=== PATIENT | female | born 1960 | race American Indian/Alaskan Native ===

== ENCOUNTER 2018-01-31 17:41 | Emergency (ER) | payer MEDICARE ==
[2018-01-31] MEDS ORDERED: SUBLIMAZE IV ONE (18:41)
[2018-01-31] MEDS ORDERED: ZOFRAN IV ONE (18:41)
[2018-01-31] MEDS ORDERED: BENADRYL IV ONE (18:41)
--- NOTE | 2018-01-31 18:49 | Emergency Department Report ---
HPI - General Chief Complaint: Weakness Time Seen by Provider: 01/31/18 18:23 - HPI HPI: Room 26 The patient is a 57-year-old female presenting with a chief complaint of abdominal pain. 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 The patient states she was placed on an experimental drug Ditext 4 days ago. The patient states since starting the pain she's had diffuse abdominal pain but greatest in the right upper quadrant. The patient states she is also noticed slowly decreasing output from her ileostomy to the point there is virtually no output this morning. The patient states the decreased output appeared thicker than normal. The patient does not but denies vomiting patient denies fever but admits to chills. Patient denies dysuria or hematuria. The patient states she contacted the program over her experimental drug today and they instructed her to stop taking the medication if it persists to come to the emergency department. The patient states pain was too severe for her to travel to the original emergency department so she came to the nearest ED. Location: [See above] Duration: Worsening over 3-4 days Quality: "Hurt" Severity: 10 Modifying factors: [see above] Context: [see above] Mode of transportation: [not driving] ED Past Medical Hx - Past Medical History Hx Hypertension: Yes Hx Diabetes: Yes Hx of Cancer: Yes Additional medical history: short gut syndrome, ileostomy, ulcerative colitis - Surgical History Additional Surgical History: Bowel resection secondary to ulcerative colitis and fecal incontinence. Patient states she's had approximately 30 surgeries related to infection or obstruction of her ileostomy. Bilateral mastectomy 2000. Herniorrhaphy - Family History Family history: no significant - Social History Smoking Status: Never Smoker Substance Use Type: None - Medications Home Medications: Home Medications Medication Instructions Recorded Confirmed Last Taken Type HYDROcodone/APAP 5-325 [[place] 1 - 2 each PO Q6HR PRN #14 tablet 01/31/18 Unknown Rx 5/325] ED Review of Systems ROS: Stated complaint: VERY WEAK/ABD PAIN Other details as noted in HPI Constitutional: chills. denies: fever Eyes: denies: eye pain ENT: denies: throat pain Cardiovascular: denies: chest pain Gastrointestinal: abdominal pain, nausea, constipation. denies: vomiting Genitourinary: denies: dysuria Musculoskeletal: back pain, myalgia Neurological: denies: headache Physical Exam - Physical Exam Vital Signs: Vital Signs 01/31/18 17:50 Temperature 98.7 F Pulse Rate 97 H Respiratory 18 Rate Blood Pressure 163/101 O2 Sat by Pulse 98 Oximetry Physical Exam: GENERAL: The patient is well-developed well-nourished female lying on stretcher appearing to be in mild discomfort. [] HEENT: Normocephalic. Atraumatic. Extraocular motions are intact. Patient has moist mucous membranes. NECK: Supple. Trachea midline CHEST/LUNGS: Clear to auscultation. There is no respiratory distress noted. HEART/CARDIOVASCULAR: Regular. There is no tachycardia. There is no gallop rub or murmur. ABDOMEN: Abdomen is soft, but diffusely tender to palpation. Patient has normal bowel sounds. There is no abdominal distention. SKIN: There is no rash. There is no edema. There is no diaphoresis. NEURO: The patient is awake, alert, and oriented. The patient is cooperative. The patient has normal speech MUSCULOSKELETAL:There is no evidence of acute injury. ED Course Vital Signs 01/31/18 17:50 Temperature 98.7 F Pulse Rate 97 H Respiratory 18 Rate Blood Pressure 163/101 O2 Sat by Pulse 98 Oximetry - Consultations Consultation #1: 01/31/18 21:42 Patient's experimental drug called ([phone])-no answer. Voice mail left ED Medical Decision Making - Lab Data Result diagrams: 01/31/18 19:01 01/31/18 19:01 Laboratory Tests 01/31/18 01/31/18 01/31/18 19:01 19:01 19:12 WBC 4.8 RBC 4.29 Hgb 11.3 Hct 35.1 MCV 82 MCH 26 L MCHC 32 RDW 15.3 H Plt Count 213 Lymph % (Auto) 35.0 [place] % (Auto) 9.1 H Eos % (Auto) 3.3 Baso % (Auto) 0.5 Lymph # 1.7 [place] # 0.4 Eos # 0.2 Baso # 0.0 Seg Neutrophils % 52.1 Seg Neutrophils # 2.5 Sodium 141 Potassium 4.4 Chloride 106.3 Carbon Dioxide 20 L Anion Gap 19 BUN 8 Creatinine 0.8 Estimated GFR > 60 BUN/Creatinine Ratio 10 Glucose 112 H Calcium 9.4 Total Bilirubin 0.20 AST 13 ALT 9 Alkaline Phosphatase 91 Total Protein 6.9 Albumin 4.0 Albumin/Globulin Ratio 1.4 Lipase 66 H Urine Color Yellow Urine Turbidity Clear Urine pH 5.0 Ur Specific [place] 1.012 Urine Protein <15 mg/dl Urine Glucose (UA) Neg Urine Ketones Neg Urine Blood Neg Urine Nitrite Neg Urine Bilirubin Neg Urine Urobilinogen < 2.0 Ur Leukocyte Esterase Neg Urine WBC (Auto) 1.0 Urine RBC (Auto) 1.0 U Epithel Cells (Auto) 2.0 - Radiology Data Radiology results: report reviewed (CT abdomen and pelvis), image reviewed (CT abdomen and pelvis) CT abdomen and pelvis (read by radiologist)-evidence of intestinal obstruction. Mild degree free fluid in the pelvic cavity. Multiple subcutaneous nodules of anterior abdominal wall are suspicious for neoplastic nodules. Clinical correlation and ultrasound evaluation are recommended. A small irregular cystic lesion of the left lobe liver is noted. Comparison with any prior studies would be of help. Otherwise ultrasound evaluation may be recommended. - Medical Decision Making Patient instructed to follow up with her experimental drug Team. - Differential Diagnosis bowel obstruction, adverse event, gastritis, pancreatitis Critical care attestation.: If time is entered above; I have spent that time in minutes in the direct care of this critically ill patient, excluding procedure time. ED Disposition Clinical Impression: Acute abdominal pain, Liver cyst Disposition: - TO HOME OR SELFCARE Is pt being admited?: No Does the pt Need Aspirin: No Condition: Stable Instructions: Acute Abdominal Pain (ED) Additional Instructions: Return to the emergency department immediately should you develop worsening symptoms, fever, inability to tolerate food or liquid or any other concerns. Prescriptions: HYDROcodone/APAP 5-325 [[place] 5/325] 1 - 2 each PO Q6HR PRN #14 tablet PRN Reason: Pain Referrals: PRIMARY CARE, [Primary Care Provider] - [facility] Time of Disposition: 21:45
[2018-01-31 19:25] LABS: Basophils % (Auto) 0.5 % (0.0-1.8); Eosinophils # (Auto) 0.2 K/mm3 (0.0-0.4); Eosinophils % (Auto) 3.3 % (0.0-4.3); Hematocrit 35.1 % (30.3-42.9); Hemoglobin 11.3 gm/dl (10.1-14.3); Lymphocytes # (Auto) 1.7 K/mm3 (1.2-5.4); Mean Corpuscular HGB Conc 32 % (30-34); Mean Corpuscular Hemoglobin 26 pg (28-32); Mean Corpuscular Volume 82 fl (79-97); Monocytes # (Auto) 0.4 K/mm3 (0.0-0.8); Monocytes % (Auto) 9.1 % (0.0-7.3); Platelet Count 213 K/mm3 (140-440); Red Blood Count 4.29 M/mm3 (3.65-5.03); Red Cell Distribution Width 15.3 % (13.2-15.2)
[2018-01-31 19:29] LABS: Bilirubin,Urine NEG (Negative); Blood,Urine NEG (Negative); Color,Urine Yellow (Yellow); Protein,Urine <15 mg/dL mg/dL (Negative); Urobilinogen,Urine < 2.0 mg/dL (<2.0)
[2018-01-31 19:37] LABS: Alanine Aminotransferase 9 units/L (7-56); BUN/Creatinine Ratio 10; Blood Urea Nitrogen 8 mg/dL (7-17); Calcium 9.4 mg/dL (8.4-10.2); Hemolysis Index 2; Lipase 66 units/L (13-60)
--- NOTE | 2018-01-31 21:47 | Cat Scan Report ---
FINAL REPORT PROCEDURE: CT ABDOMEN PELVIS W CON TECHNIQUE: Computerized axial tomography of the abdomen and pelvis was performed after the IV injection of iodinated nonionic contrast. HISTORY: abdominal pain, decreased ileostomy output COMPARISON: No prior studies are available for comparison. FINDINGS: There is mild thickening of interstitial septa in the visualized lung bases. Liver demonstrates an irregular cyst measuring 9 millimeters x 5 millimeters located segment 4. Spleen, and adrenal glands are within normal limits. Bilateral kidneys demonstrate uniform enhancement without hydronephrosis. Urinary bladder is partially filled. Aorta is of normal caliber. Mild degree of free fluid is noted in the pelvic cavity. There is no free air. Gallbladder is unremarkable. Small bowel loops are within normal limits. Right-sided ileostomy is noted and contrast is identified within the ileostomy bag. There is evidence of colectomy. Trace bilateral pleural effusions are noted. Multiple small subcutaneous nodules are identified in the lower anterior abdominal wall bilaterally measuring up to 13 millimeters. Vertebral height is normal.. IMPRESSION: No evidence of intestinal obstruction Mild degree free fluid in the pelvic cavity Multiple subcutaneous nodules of anterior abdominal wall are suspicious for neoplastic nodules. Clinical correlation and ultrasound evaluation are recommended. A small irregular cystic lesion of left lobe liver is noted. Comparison with any prior studies would be of help. Otherwise ultrasound evaluation may be recommended.
[2018-01-31] MEDS ORDERED: BENADRYL PO ONE (22:11)
[2018-01-31 22:35] VITALS: BP 138/85
== END 2018-01-31 22:33 | disposition home or self-care (01) ==
LOC: ED 17:41
DX: K76.89 Other specified diseases of liver (principal); R10.84 Generalized abdominal pain; I10 Essential (primary) hypertension; E11.9 Type 2 diabetes mellitus without complications; Z90.13 Acquired absence of bilateral breasts and nipples
CPT/HCPCS: 36415; 74177; 80053; 81001; 83690; 85025; 96374; 96375; 99284; J1200; J2405; J3010; Q9967

== ENCOUNTER 2019-06-12 17:26 | Emergency (ER) | payer MEDICARE ==
--- NOTE | 2019-06-12 17:45 | Event Note ---
ED Screening Note Date of service: 06/12/19 ED Screening Note: This is a 58 y.o. F. that presents to the ER with left shoulder pain and low back pain x 1 month. PMH of HTN & DM2 Reports nausea and bleeding from ileostomy. This initial assessment/diagnostic orders/clinical plan/treatment(s) is/are subject to change based on patients health status, clinical progression and re- assessment by fellow clinical providers in the ED. Further treatment and workup at subsequent clinical providers discretion. Patient/guardian urged not to elope from the ED as their condition may be serious if not clinically assessed and managed. Initial orders include: XR of left shoulder and labs
--- NOTE | 2019-06-12 19:06 | XRay Report ---
Left shoulder, 3 views INDICATION: Pain FINDINGS: The joint space is maintained. There is no fracture or dislocation. No spurring or arthriti c change. No bone lesion or periostitis. No significant abnormality. IMPRESSION: Negative study Signer Name: Leroy Krishnan MD Signed: 06/12/2019 7:02 PM Workstation Name: [id number]
[2019-06-12] MEDS ORDERED: ROBAXIN PO STA (19:10)
[2019-06-12] MEDS ORDERED: MORPHINE IV ONE (19:10)
[2019-06-12] MEDS ORDERED: ZOFRAN IV ONE (19:10)
--- NOTE | 2019-06-12 19:19 | Emergency Department Report ---
ED General Adult HPI - General Chief complaint: Pain General Stated complaint: HEADACHE/WEAKNESS/ PAIN Time Seen by Provider: 06/12/19 17:40 Source: patient, family Mode of arrival: Wheelchair Limitations: No Limitations - History of Present Illness Initial comments: 58 y.o. female with history of surgical syndrome ileostomy and ulcerative colitis presents complaining of left shoulder pain. Patient states that she was recently discharged from [facility] MRI of her shoulder she says she had a torn rotator cuff has multiple orthopedist on Friday. Patient states that she has had no acute trauma to her left shoulder. Patient's abdominal tenderness. Patient states that she also had noted blood in her ileostomy. Currently this is not the case. Patient that she the primary she picks it more than 5 pounds when she starts to walk. Currently there is brown stool present. Patient states she takes no pain medicine at home. Patient states the only thing that works for her pain in her left shoulder for the past 2 month has been morphine IV. Patient states that intermittently Robaxin helps as well. Patient has had no fever. - Related Data Previous Rx's Medication Instructions Recorded Last Taken Type HYDROcodone/APAP 5-325 [[place] 1 - 2 each PO Q6HR PRN #14 tablet 01/31/18 Unknown Rx 5/325] methOCARBAMOL [Robaxin TAB] 750 mg PO Q8H PRN #14 tablet 06/12/19 Unknown Rx traMADol [Ultram] 50 mg PO Q6HR PRN #15 tablet 06/12/19 Unknown Rx Allergies Allergy/AdvReac Type Severity Reaction Status Date / Time adhesive tape Allergy Hives Verified 06/12/19 17:31 Penicillins Allergy Hives Verified 06/12/19 17:31 Sulfa (Sulfonamide Allergy Hives Verified 06/12/19 17:31 Antibiotics) ED Review of Systems ROS: Stated complaint: HEADACHE/WEAKNESS/ PAIN Other details as noted in HPI Constitutional: denies: chills, fever Eyes: denies: eye pain, eye discharge, vision change ENT: denies: ear pain, throat pain Respiratory: denies: cough, shortness of breath, wheezing Cardiovascular: denies: chest pain, palpitations Endocrine: no symptoms reported Gastrointestinal: denies: abdominal pain, nausea, diarrhea Genitourinary: denies: urgency, dysuria, discharge Musculoskeletal: myalgia Skin: denies: rash, lesions Neurological: denies: headache, weakness, paresthesias Psychiatric: denies: anxiety, depression Hematological/Lymphatic: denies: easy bleeding, easy bruising ED Past Medical Hx - Past Medical History Previous Medical History?: Yes Hx Hypertension: Yes Hx Diabetes: Yes Hx of Cancer: Yes (breast) Hx Seizures: Yes Additional medical history: short gut syndrome, ileostomy, ulcerative colitis - Surgical History Past Surgical History?: Yes Additional Surgical History: Bowel resection secondary to ulcerative colitis and fecal incontinence. Patient states she's had approximately 30 surgeries related to infection or obstruction of her ileostomy. Bilateral mastectomy 2000. Herniorrhaphy - Social History Smoking Status: Never Smoker Substance Use Type: None - Medications Home Medications: Home Medications Medication Instructions Recorded Confirmed Last Taken Type HYDROcodone/APAP 5-325 [[place] 1 - 2 each PO Q6HR PRN #14 tablet 01/31/18 Unknown Rx 5/325] methOCARBAMOL [Robaxin TAB] 750 mg PO Q8H PRN #14 tablet 06/12/19 Unknown Rx traMADol [Ultram] 50 mg PO Q6HR PRN #15 tablet 06/12/19 Unknown Rx ED Physical Exam - General Limitations: No Limitations General appearance: alert, other (minimal distress; ) - Head Head exam: Present: atraumatic, normocephalic - Eye Eye exam: Present: normal appearance - ENT ENT exam: Present: mucous membranes moist - Neck Neck exam: Present: normal inspection - Respiratory Respiratory exam: Present: normal lung sounds bilaterally. Absent: respiratory distress - Cardiovascular Cardiovascular Exam: Present: regular rate, normal rhythm. Absent: systolic murmur, diastolic murmur, rubs, gallop - GI/Abdominal GI/Abdominal exam: Present: soft, normal bowel sounds, other (ileostomy shows no active bleeding; brown stool noted ) - Extremities Exam Extremities exam: Present: normal inspection, other (limited active ROM of left shoulder; no evidence of ertyhema or ecchymnosis) - Back Exam Back exam: Present: normal inspection - Neurological Exam Neurological exam: Present: alert, oriented X3. Absent: motor sensory deficit - Psychiatric Psychiatric exam: Present: normal affect, normal mood - Skin Skin exam: Present: warm, dry, intact, normal color. Absent: rash ED Course Vital Signs 06/12/19 06/12/19 06/12/19 17:34 18:48 20:24 Temperature 98.5 F Pulse Rate 110 H 87 72 Respiratory 20 16 12 Rate Blood Pressure 196/120 186/89 167/76 [Left] O2 Sat by Pulse 100 100 97 Oximetry ED Medical Decision Making - Lab Data Result diagrams: 06/12/19 19:53 06/12/19 19:53 - Medical Decision Making Patient has no acute pathology on x-ray. Patient to be discharged to follow-up with PCP. Since states she has an appointment with orthopedist on Friday but wants a referral to the orthopedist. This facility if she states she is currently counseled that appointment to see that orthopedist. Patient again has no active bleeding from her ostomy. - Differential Diagnosis Dehydration; Anemia; Electrolyte Abnormality; Fracture; Dislocation Critical care attestation.: If time is entered above; I have spent that time in minutes in the direct care of this critically ill patient, excluding procedure time. ED Disposition Clinical Impression: Shoulder pain, Ileostomy present, Ulcerative colitis Disposition: TO HOME OR SELFCARE Is pt being admited?: No Does the pt Need Aspirin: No Condition: Stable Instructions: Shoulder Sprain (ED) Prescriptions: methOCARBAMOL [Robaxin TAB] 750 mg PO Q8H PRN #14 tablet PRN Reason: Pain, Moderate (4-6) traMADol [Ultram] 50 mg PO Q6HR PRN #15 tablet PRN Reason: Pain Referrals: PRIMARY CARE, [Primary Care Provider] - 3-5 Days MARIPOSA DOUGLAS MD [Staff Physician] - 3-5 Days Time of Disposition: 20:57 Print Language: [email or web address]
[2019-06-12 20:01] LABS: Basophils % (Auto) 0.8 % (0.0-1.8); Eosinophils # (Auto) 0.1 K/mm3 (0.0-0.4); Eosinophils % (Auto) 3.4 % (0.0-4.3); Hematocrit 31.9 % (30.3-42.9); Hemoglobin 10.6 gm/dl (10.1-14.3); Lymphocytes # (Auto) 1.4 K/mm3 (1.2-5.4); Lymphocytes % (Auto) 33.6 % (13.4-35.0); Mean Corpuscular HGB Conc 33 % (30-34); Mean Corpuscular Volume 79 fl (79-97); Monocytes # (Auto) 0.3 K/mm3 (0.0-0.8); Monocytes % (Auto) 6.8 % (0.0-7.3); Platelet Count 202 K/mm3 (140-440); Red Blood Count 4.06 M/mm3 (3.65-5.03); Red Cell Distribution Width 17.1 % (13.2-15.2)
[2019-06-12 20:23] LABS: Alanine Aminotransferase 21 units/L (7-56); Albumin 3.6 g/dL (3.9-5); BUN/Creatinine Ratio 16; Blood Urea Nitrogen 11 mg/dL (7-17); Calcium 8.9 mg/dL (8.4-10.2); Hemolysis Index 11
[2019-06-12 20:25] VITALS: BP 167/76
== END 2019-06-12 21:11 | disposition home or self-care (01) ==
LOC: ED 17:26
DX: M25.512 Pain in left shoulder (principal); K51.90 Ulcerative colitis, unspecified, without complications; I10 Essential (primary) hypertension; E11.9 Type 2 diabetes mellitus without complications; Z98.890 Other specified postprocedural states; Z88.1 Allergy status to other antibiotic agents; Z88.2 Allergy status to sulfonamides; Z79.899 Other long term (current) drug therapy
CPT/HCPCS: 36415; 73030; 80053; 83735; 85025; 96374; 96375; 99284; J2270; J2405